=== PATIENT | male | born 1970 | race Caucasian/White ===

== ENCOUNTER 2018-06-17 10:42 | Emergency (ER) | payer BC ==
[2018-06-17] MEDS ORDERED: DIPH,PERTUS(ACELL)TETVAC-LF 0.5 ML VIAL IM ONE (11:13)
--- NOTE | 2018-06-17 11:19 | ED ---
General Adult HPI - General Chief complaint: Head Injury Stated complaint: HEAD INJURY, BRANCH FELL ON HEAD Time Seen by Provider: 06/17/18 11:02 Source: patient, RN notes reviewed, old records reviewed Mode of arrival: ambulatory Limitations: no limitations - History of Present Illness Initial comments: 47-year-old male presents status post head injury with large scalp laceration. Patient was trimming trees, a branch approximately 5-6 inches in diameter struck the top of his head. He did have laboratory loss consciousness. This occurred approximately 30 minutes prior to arrival. Patient had recent skin cancer removal on his scalp. This did open his incision approximately 10-12 cm wound dehiscence. Patient denies any dizziness, significant headache, lightheadedness, focal numbness or weakness. He is otherwise healthy, no chronic medical problems. - Related Data Allergies Allergy/AdvReac Type Severity Reaction Status Date / Time No Known Allergies Allergy Verified 06/17/18 10:55 Review of Systems ROS Statement: Those systems with pertinent positive or pertinent negative responses have been documented in the HPI. ROS Other: All systems not noted in ROS Statement are negative. Past Medical History Past Medical History: Cancer Additional Past Medical History / Comment(s): melanoma History of Any Multi-Drug Resistant Organisms: None Reported Additional Past Surgical History / Comment(s): skin cancer removal Past Psychological History: No Psychological Hx Reported Smoking Status: Never smoker Past Alcohol Use History: None Reported Past Drug Use History: None Reported General Exam Limitations: no limitations General appearance: alert, in no apparent distress Head exam: Present: normocephalic. Absent: atraumatic (12 cm laceration along previous incision line, left parietal occipital scalp) Eye exam: Present: normal appearance, PERRL, EOMI ENT exam: Present: normal exam Neck exam: Present: normal inspection, full ROM. Absent: tenderness, meningismus Respiratory exam: Present: normal lung sounds bilaterally. Absent: respiratory distress, wheezes, rales Cardiovascular Exam: Present: regular rate, normal rhythm GI/Abdominal exam: Present: soft. Absent: distended, tenderness, guarding Extremities exam: Present: normal inspection, normal capillary refill. Absent: pedal edema Neurological exam: Present: alert, oriented X3, CN II-XII intact, normal gait. Absent: motor sensory deficit Expanded Neurological exam: Absent: receptive aphasia, expressive aphasia Patient oriented to: Present: person, place, time Speech: Present: fluid speech Cranial nerves: EOM's Intact: Normal, Gag Reflex: Normal, Tongue Deviation: Normal, Nystagmus: Normal, Facial Sensation: Normal, Facial Palsy with Forehead Movement: Normal, Facial Palsy without Forehead Movement: Normal Cerebellar function: Finger to Nose: Normal Upper motor neuron: Morgan Neglect: Normal, Pronator Drift: Normal, Babinski Sign: Normal, Sensory Extinction: Normal Motor strength exam: RUE: 5, LUE: 5, RLE: 5, LLE: 5 Eye Response: (4) open spontaneously Motor Response: (6) obeys commands Verbal Response: (5) oriented Psychiatric exam: Present: normal affect, normal mood Skin exam: Present: other (Large scalp laceration) Course Vital Signs 06/17/18 10:51 Temperature 98 F Pulse Rate 76 Respiratory 18 Rate Blood Pressure 150/86 O2 Sat by Pulse 97 Oximetry Medical Decision Making - Medical Decision Making 47-year-old male with head injury, large scalp laceration. Patient is uncertain of tetanus status, this is updated in the emergency department. Patient does not want laceration repaired, he has called his digital imaging specialist and his digital imaging specialist is leaving him in 30 minutes for repair of this laceration as he is approximately one month postop. Head CT is obtained, negative for intracranial hemorrhage or mass effect. Patient given concussion instructions, will follow-up with his digital imaging specialist for laceration repair, will follow-up with primary care physician for reevaluation. Please return to emergency department with worsening or changing symptoms. I did discuss case with patient's digital imaging specialist, he is currently waiting for the patient for suture repair of scalp laceration. Dr. Ko Disposition Clinical Impression: Concussion with loss of consciousness, Scalp laceration Disposition: HOME SELF-CARE Condition: Fair Instructions (If sedation given, give patient instructions): Laceration (ED), Concussion (ED) Is patient prescribed a controlled substance at d/c from ED?: No Referrals: Chriss Barker DO [Primary Care Provider] - 1-2 days Britt Ko MD [STAFF PHYSICIAN] - 1-2 days Time of Disposition: 11:19
--- NOTE | 2018-06-17 11:36 | CT ---
EXAMINATION TYPE: CT brain wo con DATE OF EXAM: 06/17/2018 COMPARISON: NONE HISTORY: Head trauma, laceration and LOC at time of trauma. CT DLP: 1056.4 mGycm Automated exposure control for dose reduction was used. FINDINGS: Central structures are midline. There is no evidence of hydrocephalus. No acute focal lesion, mass ef fect or midline shift is seen. I do not see evidence of intracranial blood. There is minimal mucoperiosteal thickening involving one of the posterior ethmoidal air cells on the right. The remainder the visualized sinuses and mastoid air cells are normal. The bony calvarium is i ntact. There is a scalp laceration over the convexity of the left frontal region. IMPRESSION: 1. NO ACUTE INTRACRANIAL ABNORMALITY. 2. LEFT FRONTAL SCALP HEMATOMA.
[2018-06-17 11:58] VITALS: BP 139/92; PULSE 74; RESP 16; TEMP 98.7
== END 2018-06-17 12:02 | disposition home or self-care (01) ==
LOC: EC 10:42
DX: S06.0X9A Concussion with loss of consciousness of unspecified duration, initial encounter (principal); S01.01XA Laceration without foreign body of scalp, initial encounter; R40.2142 Coma scale, eyes open, spontaneous, at arrival to emergency department; R40.2252 Coma scale, best verbal response, oriented, at arrival to emergency department; R40.2362 Coma scale, best motor response, obeys commands, at arrival to emergency department; Z85.820 Personal history of malignant melanoma of skin; Z98.890 Other specified postprocedural states; Z23 Encounter for immunization; W20.8XXA Other cause of strike by thrown, projected or falling object, initial encounter; Y93.H2 Activity, gardening and landscaping; Y92.89 Other specified places as the place of occurrence of the external cause
CPT/HCPCS: 70450; 90471; 90715; 99284

== ENCOUNTER → 2020-03-10 | Outpatient (CLI) | payer BC ==
--- NOTE | 2020-03-10 12:29 | XR ---
EXAMINATION TYPE: XR finger LT DATE OF EXAM: 03/10/2020 COMPARISON: NONE HISTORY: Injury 5 weeks ago with pain. TECHNIQUE: Frontal and lateral views left middle finger. FINDINGS: No acute fracture or dislocation. Joint spaces are maintained. Overlying soft tissue is unr emarkable. IMPRESSION: As above.
== END | disposition home or self-care (01) ==
LOC: RADXRYALE 12:09
PROVIDERS: ATTEND Physician Assistant Medical
DX: M25.542 Pain in joints of left hand (principal)

== ENCOUNTER 2023-02-05 19:40 | Emergency (ER) | payer BC ==
[2023-02-05 20:05] VITALS: TEMP 98.7
[2023-02-05] MEDS ORDERED: IBUPROFEN 800 MG TAB PO STA (20:34)
[2023-02-05] MEDS ORDERED: AMOXIC-POT CLAV 875-125MG 1 EACH TAB PO STA (20:35)
[2023-02-05] MEDS ORDERED: DIPH,PERTUS(ACELL)TETVAC-LF 0.5 ML VIAL IM ONE (20:35)
[2023-02-05] MEDS ORDERED: LIDOCAINE 1% INJ 10MG/ML (20 ML MDV) SQ ONE (20:41)
--- NOTE | 2023-02-05 20:49 | ED ---
General Adult HPI - General Chief complaint: Animal Bite Stated complaint: left hand laceration Time Seen by Provider: 02/05/23 20:25 Source: patient, RN notes reviewed Mode of arrival: ambulatory Limitations: no limitations - History of Present Illness Initial comments: 52-year-old significant past medical history presents to the emergency department with a chief complaint of dog bite. Patient has on his left hand. He is up-to-date on vaccines. He believes the dog is up-to-date on his vaccines. He did not take anything prior to arrival for pain. He is not up-to-date on his tetanus. No numbness, tingling, weakness. No anticoagulant use. - Related Data Previous Rx's Medication Instructions Recorded Amoxic-Pot Clav 875-125Mg 1 tab PO Q12HR #20 tab 02/05/23 [Augmentin 875-125] Allergies Allergy/AdvReac Type Severity Reaction Status Date / Time No Known Allergies Allergy Verified 06/17/18 10:55 Review of Systems ROS Statement: Those systems with pertinent positive or pertinent negative responses have been documented in the HPI. ROS Other: All systems not noted in ROS Statement are negative. Past Medical History Past Medical History: Cancer Additional Past Medical History / Comment(s): melanoma History of Any Multi-Drug Resistant Organisms: None Reported Additional Past Surgical History / Comment(s): skin cancer removal Past Psychological History: No Psychological Hx Reported Past Alcohol Use History: None Reported Past Drug Use History: None Reported General Exam Limitations: no limitations Course Vital Signs 02/05/23 02/05/23 19:52 22:07 Temperature 98.7 F Pulse Rate 92 78 Respiratory 16 18 Rate Blood Pressure 167/98 151/95 O2 Sat by Pulse 100 95 Oximetry Procedures - Laceration Laceration #1 Consent Obtained: verbal consent Indication: laceration Site: hand (left ), other Description: linear Anesthetic Used: lidocaine 1% Anesthesia Technique: local infiltration Amount (mls): 3 Pre-repair: wound explored, irrigated extensively Type of Sutures: other Size of Sutures: 5-0 Number of Sutures: 2 Technique: simple, interrupted Complications: pain, bleeding, nerve injury Patient Tolerated Procedure: well Laceration #2 Indication: laceration Site: hand Size (cm): 1 Description: linear, avulsion Depth: simple, single layer Anesthetic Used: lidocaine 1% Anesthesia Technique: local infiltration Amount (mls): 2 Pre-repair: wound explored, irrigated extensively Type of Sutures: nylon, vicryl Size of Sutures: 5-0 Number of Sutures: 2 Technique: simple, interrupted Complications: pain, bleeding, nerve injury Patient Tolerated Procedure: well, no complications Medical Decision Making - Medical Decision Making Was pt. sent in by a medical professional or institution (PURVI Rizo, [employer]LECT[employer] LIFT TRUCK [employer]IVER, urgent care, hospital, or long term...) When possible be specific @ -[No] Did you speak to anyone other than the patient for history (EMS, parent, family, police, friend...)? What history was obtained from this source @ -[No] Did you review nursing and triage notes (agree or disagree)? Why? @ -[I reviewed and agree with nursing and triage notes] Were old charts reviewed (outside hosp., previous admission, EMS record, old EKG, old radiological studies, urgent care reports/EKG's, long term records)? Report findings @ -[No old charts were reviewed] Differential Diagnosis (chest pain, altered mental status, abdominal pain women, abdominal pain men, vaginal bleeding, weakness, fever, dyspnea, syncope, headache, dizziness, GI bleed, back pain, seizure, CVA, palpatations, mental health, musculoskeletal)? @ -[not applicable] EKG interpreted by me (3pts min.). @ -[As above] X-rays interpreted by me (1pt min.). @ -X-ray does not reveal any foreign body retention CT interpreted by me (1pt min.). @ -[None done] U/S interpreted by me (1pt. min.). @ -[None done] What testing was considered but not performed or refused? (CT, X-rays, U/S, labs)? Why? @ -[None] What meds were considered but not given or refused? Why? @ -[None] Did you discuss the management of the patient with other professionals (professionals i.e. PURVI Rizo, ELECTRIC LIFT TRUCK DRIVER, lab, RT, psych nurse, clinical social work aide, software engineer developer, teacher, minesweeping officer, case therapist)? Give summary @ -[No] Was smoking cessation discussed for >3mins.? @ -[No] Was critical care preformed (if so, how long)? @ -[No] Were there social determinants of health that impacted care today? How? (Homelessness, low income, unemployed, alcoholism, drug addiction, transportation, low edu. Level, literacy, decrease access to med. care, skilled nursing, rehab)? @ -[No] Was there de-escalation of care discussed even if they declined (Discuss DNR or withdrawal of care, Hospice)? DNR status @ -[No] What co-morbidities impacted this encounter? (DM, HTN, Smoking, COPD, CAD, Cancer, CVA, ARF, Chemo, Hep., AIDS, mental health diagnosis, sleep apnea, morbid obesity)? @ -[None] Was patient admitted / discharged? Hospital course, mention meds given and route, prescriptions, significant lab abnormalities, going to OR and other pertinent info. @ -Discharged. This is a 52-year-old male who presents to the emergency department with dog bite. Patient had a physical exam performed. 4 puncture wounds to left hand. Patient had 4 sutures placed to tolerated well. (Precautions discussed. Patient updated on tetanus vaccine. Patient given Augmentin. Return precautions discussed all. Patient discharged in stable condition. Case discussed with Dr. Ordaz, [facility] who agrees with plan of care Undiagnosed new problem with uncertain prognosis? @ -[No] Drug Therapy requiring intensive monitoring for toxicity (Heparin, Nitro, Insulin, Cardizem)? @ -[No] Were any procedures done? @ -[No] Diagnosis/symptom? @ -Dog Bite Acute, or Chronic, or Acute on Chronic? @ -Acute Uncomplicated (without systemic symptoms) or Complicated (systemic symptoms)? @ -Uncomplicated Side effects of treatment? @ -[No] Exacerbation, Progression, or Severe Exacerbation? @ -[No] Poses a threat to life or bodily function? How? (Chest pain, [place], [place], pneumonia, PE, COPD, DKA, ARF, appy, cholecystitis, CVA, Diverticulitis, Homicidal, Suicidal, threat to staff... and all critical care pts) @ -Low likelihood Disposition Clinical Impression: Dog bite Disposition: HOME SELF-CARE Instructions (If sedation given, give patient instructions): Animal Bite (ED), Laceration (ED), Care For Your Stitches (ED) Additional Instructions: PLease keep area clean and dry Please finish antibiotic Please take tylenol/motrin for pain Please have sutures removed in 7-10 days Prescriptions: Amoxic-Pot Clav 875-125Mg [Augmentin 875-125] 1 tab PO Q12HR #20 tab Is patient prescribed a controlled substance at d/c from ED?: No Referrals: Chriss Barker DO [Primary Care Provider] - 1-2 days Time of Disposition: 21:55
[2023-02-05 22:19] VITALS: BP 151/95; PULSE 78; RESP 18
--- NOTE | 2023-02-05 22:56 | XR ---
EXAMINATION TYPE: XR hand complete LT DATE OF EXAM: 02/05/2023 9:04 PM CLINICAL INDICATION:Male, 52 years old with history of r/out FB; [facility] COMPARISON: None TECHNIQUE: XR hand complete LT Frontal, lateral and oblique views of the left hand were obtained. FINDINGS: Osseous mineralization appears appropriate. Mild degenerative changes. Lateral view is limited by sig nificant overlap of structures. There seems to be soft tissue swelling in the mid and dorsal aspect o f the hand primarily, with small foci of soft tissue gas suggested. No definite radiopaque foreign priscila dy is identified. No fracture or dislocation is seen on the frontal or oblique views, but given the l imitations on the lateral acute osseous injury cannot be fully excluded. If there is persistent clinical concern, recommend follow-up repeat radiographs be obtained. IMPRESSION: As above.
== END 2023-02-05 22:08 | disposition home or self-care (01) ==
LOC: EC 19:40
DX: S61.452A Open bite of left hand, initial encounter (principal); Z23 Encounter for immunization; W54.0XXA Bitten by dog, initial encounter
CPT/HCPCS: 73130; 90715; 12001; 99283; 90471; J2001

== ENCOUNTER → 2023-08-05 | Outpatient (CLI) | payer BC ==
--- NOTE | 2023-08-05 12:30 | CA ---
Exercise Stress Test Report Name: Regis Matute Exam Date: 08/05/2023 09:06 Exam Location: [facility] Ht (in): 70 Wt (lb): 220 BSA: 2.17 Ordering Phys: Chriss Barker DO Referring Phys: Yesica Garcia PAC Technologist: Yamel Leal RDCS Age: 52 Gender: M : 1970 Procedure CPT: Indications: I10 HTN ICD-10 Codes: Patient History: CP, HTN, CHOL Medications: OMEPRAZOLE, LOSARTAN, ALLERGY RELIEF Meds past 24 hrs: Pretest Chest Pain: STRESS TEST Kwadwo Protocol Exercise Duration (min:sec): 08:[address] Depressions (mm): Angina Score: Renteria Score: Resting HR (bpm): 71 Peak HR (bpm): 147 Resting BP (mmHg): 148 / 94 Peak BP (mmHg): 189 / 93 MPHR: 170 Target HR: 145 % MPHR: 86 METS: 10.3 Total Dose: Peak Dose: Atropine: Double Product: 95946 BP Response: Stress Termination: Reached target heart rate Stress Symptoms: No chest pain or symptoms Stress Summary: ECG ANALYSIS Resting ECG: Stress ECG: CONCLUSIONS Good exercise tolerance Normal electrocardiogram stress test Dr. Kaleb Mas MD (Electronically Signed) Final Date: 05 Aug 2023 12:29
== END ==
LOC: RADNMMAIN 08:33
PROVIDERS: ATTEND Family Medicine
DX: I10 Essential (primary) hypertension (principal); R07.9 Chest pain, unspecified; R53.83 Other fatigue
CPT/HCPCS: 93017

== ENCOUNTER → 2024-06-19 | Outpatient (CLI) | payer BC ==
--- NOTE | 2024-06-19 14:31 | XR ---
EXAMINATION TYPE: XR cervical spine comp DATE OF EXAM: 06/19/2024 TECHNIQUE: Frontal, lateral, oblique, and open mouth view of the cervical spine are obtained. CLINICAL INDICATION: Male, 53 years old with history of M542 CERVICALGIA, pain COMPARISON: None FINDINGS: The cervical spine is visualized in its entirety from C1 thru the top of T1 level, there i s subtle grade 1 retrolisthesis C4 on C5. The pre-vertebral soft tissue appears within normal limits . The C1-C2 articulation is suboptimally evaluated due to osseous overlap even on the open-mouth vie w. Vertebral body heights are maintained. Mild disc space narrowing at C4-C5 level is seen. The obliq ue images are within normal limits. Overlying soft tissue is unremarkable. IMPRESSION: As above. [facility], , 06/19/2024 2:28 PM
== END | disposition home or self-care (01) ==
LOC: RADXRYALE 14:02
PROVIDERS: ATTEND Physician Assistant Medical
DX: M43.12 Spondylolisthesis, cervical region (principal); M50.321 Other cervical disc degeneration at C4-C5 level
CPT/HCPCS: 72050